=== PATIENT | female | born 1930 | race Caucasian/White ===

== ENCOUNTER → 2018-12-11 | Outpatient (CLI) | payer OTHER ==
[~2018-12-11] MED LIST: AMLO5 PO; ASPI81CH PO; ASPI81EC PO; BLOOD PRESSURE PILL; CEFA250 PO; CEFU500 PO; CHOL10002; CHOL10002 PO; CITA20 PO; CRANBERRY500 M1 PO; CYAN500 PO; DOCU100 PO; DOXY100 PO; ESTMED PO; GLIM4 PO; GLYB5 PO; GLYMET5 PO; Garlic Oil1000 MG PO; HYDACE5 PO; INSDET100 SC; LISI10 PO; LISI5 PO; MELO7.5 PO; METF500 PO; METO25; METO25ER PO; MULVITMINF PO; NITR100CA PO; NORT25 PO; Nortriptyline H10 MG PO; Novolog Fl100 UNIT/1 SC; ONDA4ODT MM; PRAV10 PO; PRAV20 PO; PRAV40 PO; PRAVASTATIN SOD10 MG PO; RXONDA4ODT MM; SULTRIDS PO; THIO PO; [UNRECOGNIZED DRUG - CODE]; [UNRECOGNIZED DRUG - CODE] PO; [UNRECOGNIZED DRUG - REMARK]
[2018-12-11 11:55] LABS: Source, Urine Voided
[2018-12-11 16:38] LABS: Appearance, Urine Cloudy (Clear); Bilirubin, Urine Neg (Neg); Blood, Urine 5+ (Neg); Color, Urine Yellow (P-Yellow); Glucose Qualitative, Urine Neg (Neg); Ketones, Urine Neg (Neg); Leukocyte Esterase, Urine 3+ (Neg); Nitrite, Urine Pos (Neg); Protein, Urine 2+ (Neg); Urobilinogen, Urine NORM (Normal)
[2018-12-11 17:47] LABS: White Blood Cells, Urine TNTC /hpf (0-5)
[2018-12-11 17:48] LABS: Bacteria Many /hpf; Red Blood Cells, Urine 25-50 /hpf (0-2); Squamous Epithelial Cells Many /hpf (Few)
== END | disposition home or self-care (01) ==
LOC: LAB SHORT 11:53 → LAB 11:53
PROVIDERS: Family Medicine
DX: R35.0 Frequency of micturition (principal)
CPT/HCPCS: 81001; 87077; 87086; 87186

== ENCOUNTER → 2019-06-20 | Outpatient (CLI) | payer OTHER | END | disposition home or self-care (01) | LOC: LAB EV 15:35 → LAB SHORT 15:35 | DX: N39.0 Urinary tract infection, site not specified (principal) | CPT/HCPCS: 87077; 87086; 87186 ==

== ENCOUNTER 2019-11-06 11:58 | Emergency (ER) | payer OTHER ==
[~2019-11-06] VITALS: Ht 162.6 cm; Wt 59.0 kg
[2019-11-06 12:33] LABS: Source, Urine Catheter
[2019-11-06 12:35] LABS: Bilirubin, Urine Neg (Neg); Blood, Urine 3+ (Neg); Glucose Qualitative, Urine 4+ (Neg); Ketones, Urine Neg (Neg); Leukocyte Esterase, Urine 3+ (Neg); Nitrite, Urine Pos (Neg); Protein, Urine 3+ (Neg); Urobilinogen, Urine NORM (Normal)
[2019-11-06 12:44] LABS: Appearance, Urine Cloudy (Clear); Color, Urine Yellow (P-Yellow); Red Blood Cells, Urine TNTC /hpf (0-2); White Blood Cells, Urine TNTC /hpf (0-5)
[2019-11-06 12:45] LABS: Bacteria Many /hpf; Squamous Epithelial Cells Not Seen /hpf (Few)
[2019-11-06 12:49] LABS: BASOPHILS ABSOLUTE AUTO 0.08 K/mm3 (0.00-0.23); BASOPHILS PERCENT AUTO 1 % (0-2); EOSINOPHILS ABSOLUTE AUTO 0.21 K/mm3 (0.00-0.68); EOSINOPHILS PERCENT AUTO 2 % (0-6); Hematocrit 37.9 % (33.0-51.0); Hemoglobin 12.8 g/dL (11.5-16.0); IMMATURE GRAN ABSOLUTE AUTO 0.05 K/mm3 (0.00-0.10); IMMATURE GRAN PERCENT AUTO 0 % (0-1); LYMPHOCYTES PERCENT AUTO 24 % (21-46); MONOCYTES ABSOLUTE AUTO 0.82 K/mm3 (0.16-1.47); MONOCYTES PERCENT AUTO 6 % (4-13); Mean Corpuscular HGB 31.3 pg (26.0-34.0); Mean Corpuscular HGB Conc 33.8 g/dL (31.5-36.5); Mean Corpuscular Volume 93 fL (80-100); Mean Platelet Volume 10.9 fL (9.1-12.4); NEUTROPHILS ABSOLUTE AUTO 8.66 K/mm3 (1.96-9.15); NEUTROPHILS PERCENT AUTO 67 % (41-73); Platelet Count 238 K/mm3 (150-400); RDW Coefficient Variation 13.2 % (11.7-14.2); RDW Standard Deviation 44.8 fL (35.1-46.3); Red Blood Cell Count 4.09 M/mm3 (3.80-5.20); White Blood Cell Count 12.92 K/mm3 (4.00-11.30)
[2019-11-06 13:08] LABS: Albumin, Blood 3.5 g/dL (3.4-5.0); Albumin/Globulin Ratio 0.7 (0.8-1.8); Bilirubin, Total 0.4 mg/dL (0.1-1.0); Calcium, Blood 9.3 mg/dL (8.5-10.1); Creatinine, Blood 1.26 mg/dL (0.40-1.00); Globulin, Blood 4.9 g/dL (2.2-4.0); Potassium, Blood 4.5 mmol/L (3.5-5.5); Total Protein, Blood 8.4 g/dL (6.4-8.2)
[2019-11-06] MEDS ORDERED: LEVOFLOXACIN750 MG PO (13:23)
[2019-11-06] MEDS ORDERED: POWDERLAX238 GM PO (13:23)
== END 2019-11-06 16:43 | disposition home or self-care (01) ==
LOC: ER 11:58
PROVIDERS: Physician Assistant
DX: N39.0 Urinary tract infection, site not specified (principal); K59.00 Constipation, unspecified; E11.9 Type 2 diabetes mellitus without complications; Z88.0 Allergy status to penicillin; Z88.5 Allergy status to narcotic agent; Z79.899 Other long term (current) drug therapy
CPT/HCPCS: 36415; 74018; 80053; 81001; 82947; 85025; 87086; 87147; 96365; 96366; 99283-25; J1815; J1956; P9612

== ENCOUNTER 2020-01-22 12:33 | Inpatient (IN) | payer OTHER ==
[~2020-01-22] VITALS: Ht 170.2 cm; Wt 55.9 kg
[~2020-01-22 12:33] MED LIST changes: -ASPI81CH PO; +Aspirin EC81 MG PO; -CHOL10002; +HYDR10 PO; +LEVOFLOXACIN250 MG PO; +LEVOFLOXACIN750 MG PO; +MEMA5TAB PO; -METO25; +METO25 PO; +NOVOLOG FL100 UNIT/1 SC; -Novolog Fl100 UNIT/1 SC; +POWDERLAX238 GM PO; +SENN187 PO; +VISBIOME 112.51 EACH PO; +VITAMIN D31000 UNI1 PO
[2020-01-22] MEDS ORDERED: NOVOLOG100 UNIT/2 SC (12:44)
[2020-01-22] MEDS ORDERED: BASAGLAR K100 UNIT/1 SC (12:44)
[2020-01-22] MEDS ORDERED: LEVFLO500 PO (12:45)
[2020-01-22] MEDS ORDERED: ACIDOPHILUS1 EAC3 (12:45)
[2020-01-22] MEDS ORDERED: Prinivil10 MG PO (12:45)
[2020-01-22] MEDS ORDERED: METO25ER PO (12:46)
[2020-01-22] MEDS ORDERED: AMLO5 PO (12:46)
[2020-01-22] MEDS ORDERED: Metformin HCl750 MG PO (12:46)
[2020-01-22] MEDS ORDERED: NORTRIPTYLINE H10 MG PO (12:46)
[2020-01-22] MEDS ORDERED: MEMA5TAB PO (12:46)
[2020-01-22] MEDS ORDERED: Vitamin B-121000 MCG PO (12:47)
[2020-01-22] MEDS ORDERED: Aspir 8181 MG PO (12:47)
[2020-01-22] MEDS ORDERED: GARLIC OIL1000 MG PO (12:47)
[2020-01-22] MEDS ORDERED: VITAMIN D31000 UNI1 PO (12:47)
[2020-01-22] MEDS ORDERED: Colace100 MG PO (12:47)
[2020-01-22] MEDS ORDERED: MIRALAX17 GM PO (12:47)
[2020-01-22] MEDS ORDERED: HYDR10 PO (12:47)
[2020-01-22] MEDS ORDERED: CITA20 PO (12:47)
[2020-01-22] MEDS ORDERED: SENN187 PO (12:48)
[2020-01-22] MEDS ORDERED: PRAV20 PO (12:48)
[2020-01-22 14:24] LABS: BASOPHILS ABSOLUTE AUTO 0.05 K/mm3 (0.00-0.23); BASOPHILS PERCENT AUTO 0 % (0-2); EOSINOPHILS ABSOLUTE AUTO 0.24 K/mm3 (0.00-0.68); EOSINOPHILS PERCENT AUTO 2 % (0-6); Hematocrit 38.4 % (33.0-51.0); Hemoglobin 12.9 g/dL (11.5-16.0); IMMATURE GRAN ABSOLUTE AUTO 0.07 K/mm3 (0.00-0.10); IMMATURE GRAN PERCENT AUTO 0 % (0-1); LYMPHOCYTES ABSOLUTE AUTO 2.98 K/mm3 (0.84-5.20); LYMPHOCYTES PERCENT AUTO 19 % (21-46); MONOCYTES ABSOLUTE AUTO 1.03 K/mm3 (0.16-1.47); MONOCYTES PERCENT AUTO 7 % (4-13); Mean Corpuscular HGB 31.7 pg (26.0-34.0); Mean Corpuscular HGB Conc 33.6 g/dL (31.5-36.5); Mean Corpuscular Volume 94 fL (80-100); Mean Platelet Volume 11.1 fL (9.1-12.4); NEUTROPHILS ABSOLUTE AUTO 11.34 K/mm3 (1.96-9.15); NEUTROPHILS PERCENT AUTO 72 % (41-73); Platelet Count 263 K/mm3 (150-400); RDW Coefficient Variation 12.2 % (11.7-14.2); RDW Standard Deviation 42.3 fL (35.1-46.3); Red Blood Cell Count 4.07 M/mm3 (3.80-5.20); White Blood Cell Count 15.71 K/mm3 (4.00-11.30)
[2020-01-22 14:40] LABS: Albumin, Blood 2.8 g/dL (3.4-5.0); Albumin/Globulin Ratio 0.6 (0.8-1.8); Bilirubin, Total 0.4 mg/dL (0.1-1.0); Bun/Creatinine Ratio 26.6 (12.0-20.0); Calcium, Blood 8.8 mg/dL (8.5-10.1); Creatinine, Blood 1.28 mg/dL (0.40-1.00); Globulin, Blood 4.6 g/dL (2.2-4.0); Potassium, Blood 4.6 mmol/L (3.5-5.5); Total Protein, Blood 7.4 g/dL (6.4-8.2)
--- NOTE | 2020-01-22 17:15 | NUR ---
PT ABLE TO ANSWER YES/NO QUESTIONS. PT HAVING PAIN, REQ TO HAVE PAIN MEDICATION. PT MED PRN FOR PAIN. PT ALERT, OPENS EYES WHEN TALKED TO. PT SHAKES HEAD YES/NO. PUPILS REACTIVE AND EQUAL. PT HAS BED ALARM IN PLACE.
--- NOTE | 2020-01-22 18:20 | NUR ---
DNR ORDER VERIFIED WITH OTHER RN C.H. AND PURPLE BAND PLACED ON PT.
[2020-01-22 18:46] LABS: Source, Urine Catheter
[2020-01-22 19:08] LABS: Bilirubin, Urine Neg (Neg); Blood, Urine 2+ (Neg); Glucose Qualitative, Urine 1+ (Neg); Ketones, Urine Neg (Neg); Leukocyte Esterase, Urine 2+ (Neg); Nitrite, Urine Neg (Neg); Protein, Urine 2+ (Neg); Urobilinogen, Urine NORM (Normal)
--- NOTE | 2020-01-22 19:20 | NUR ---
DR CAM WAS NOTIFIED AFTER PT ARRIVED TO FLOOR OF PT BEING IN ROOM 219 PER ORDER, SEE ORDERS.
[2020-01-22 19:27] LABS: Appearance, Urine Hazy (Clear); Color, Urine Yellow (P-Yellow)
--- NOTE | 2020-01-22 19:27 | NUR ---
RECNENTLY GAVE REPORT TO HS RN. PAS PLACED. PT WITH BED ALARM IN PLACE, PT RESTING QUIETLY.
[2020-01-22 19:29] LABS: Bacteria Mod /hpf; Red Blood Cells, Urine 0-2 /hpf (0-2); Squamous Epithelial Cells Not Seen /hpf (Few); White Blood Cells, Urine 50-100 /hpf (0-5)
--- NOTE | 2020-01-22 19:45 | NUR ---
PATIENT IS WAKEFUL WITH VERBAL STIM. SHE IS ABLE TO RECOGNIZE THAT FAMILY HAVE DELIVERED HER FAVORITE BIRCH AND BALOONS. SHE STATES THAT SHE IS HAVING PAIN IN HER RT LEG, BUT DOESNT WANT ANY PAIN MEDICATION. PATIENT IS SCHEDULED TO SEE DR CAM IN THE MORNING AND WILL LIKELY GO TO SURGERY TO REPAIR HER LT FEMUR FX. HER LUNGS ARE CLEAR NO NAUSEA/ VOMITING.
--- NOTE | 2020-01-23 03:58 | NUR ---
RN NOTIFIED OF AMOUNT OF URINE OUTPUT AND COLOR.
[2020-01-23 04:28] LABS: BASOPHILS ABSOLUTE AUTO 0.06 K/mm3 (0.00-0.23); BASOPHILS PERCENT AUTO 1 % (0-2); EOSINOPHILS PERCENT AUTO 4 % (0-6); Hematocrit 36.2 % (33.0-51.0); Hemoglobin 11.8 g/dL (11.5-16.0); IMMATURE GRAN ABSOLUTE AUTO 0.04 K/mm3 (0.00-0.10); IMMATURE GRAN PERCENT AUTO 0 % (0-1); LYMPHOCYTES ABSOLUTE AUTO 3.45 K/mm3 (0.84-5.20); LYMPHOCYTES PERCENT AUTO 29 % (21-46); MONOCYTES ABSOLUTE AUTO 0.71 K/mm3 (0.16-1.47); MONOCYTES PERCENT AUTO 6 % (4-13); Mean Corpuscular HGB 30.3 pg (26.0-34.0); Mean Corpuscular HGB Conc 32.6 g/dL (31.5-36.5); Mean Corpuscular Volume 93 fL (80-100); Mean Platelet Volume 11.5 fL (9.1-12.4); NEUTROPHILS ABSOLUTE AUTO 7.27 K/mm3 (1.96-9.15); NEUTROPHILS PERCENT AUTO 60 % (41-73); Platelet Count 245 K/mm3 (150-400); RDW Coefficient Variation 12.4 % (11.7-14.2); RDW Standard Deviation 42.7 fL (35.1-46.3); Red Blood Cell Count 3.89 M/mm3 (3.80-5.20); White Blood Cell Count 12.03 K/mm3 (4.00-11.30)
[2020-01-23 04:43] LABS: Bun/Creatinine Ratio 29.7 (12.0-20.0); Calcium, Blood 8.4 mg/dL (8.5-10.1); Creatinine, Blood 1.01 mg/dL (0.40-1.00); Potassium, Blood 4.4 mmol/L (3.5-5.5)
[2020-01-23 04:46] LABS: International Normalized Ratio 1.01; Prothrombin Time Results 10.8 Sec (9.7-11.5)
--- NOTE | 2020-01-23 17:56 | NUR ---
SUMMARY PT CALM AND COOPERATIVE, HAS MADE NO ATTEMPTS TO GET OOB. FACIAL SCALE 4 AT TIMES AND DECREASES TO 2 AFTER MEDICATED. PHONE CALLS ATTEMPTED X3 TO PATIENTS SON, JAMEY, AND CAREGIVER, SYLVAIN AND NO ANSWER. BLE WARM AND PINK. PT VONNIE PO FOOD AND FLUIDS
[2020-01-24 04:42] LABS: Hematocrit 36.6 % (33.0-51.0); Hemoglobin 12.1 g/dL (11.5-16.0); Mean Corpuscular HGB 30.9 pg (26.0-34.0); Mean Corpuscular HGB Conc 33.1 g/dL (31.5-36.5); Mean Corpuscular Volume 93 fL (80-100); Mean Platelet Volume 11.1 fL (9.1-12.4); Platelet Count 248 K/mm3 (150-400); RDW Coefficient Variation 12.3 % (11.7-14.2); RDW Standard Deviation 42.2 fL (35.1-46.3); Red Blood Cell Count 3.92 M/mm3 (3.80-5.20); White Blood Cell Count 11.08 K/mm3 (4.00-11.30)
[2020-01-24 05:05] LABS: Anion Gap 4 mmol/L (6-16); Blood Urea Nitrogen 21 mg/dL (8-24); Bun/Creatinine Ratio 23.7 (12.0-20.0); CO2, Blood 27 mmol/L (21-32); Chloride, Blood 106 mmol/L (98-108); Creatinine, Blood 0.89 mg/dL (0.40-1.00); Glomerular Filtration Rate >60 (60-); Glucose, Blood 131 mg/dL (70-99); Potassium, Blood 4.5 mmol/L (3.5-5.5); Sodium, Blood 137 mmol/L (136-145)
--- NOTE | 2020-01-24 05:51 | NUR ---
SHIFT SUMMARY AA0X2 PT COOPERATIVE WITH CARE. ABLE TO REPOSITION, SLIGHT GRIMACE WITH REPOSITION, DENIED PAIN ONCE REPOSITION DONE. NPO SINCE MIDNIGHT PER ORDERS. ORTEGA PATENT AND DRAINING. BED ALARM ON AND CALL LIGHT IN REACH T/O THE NIGHT. PLAN FOR POSSIBLE SURGERY TODAY.
--- NOTE | 2020-01-24 08:49 | NUR ---
ATTEMPTED TO CALL PT'S SON JAMEY AND BOYFRIEND. HOME PHONE NUMBER IS DISCONNECTED WHEN CALL IS PLACED. JAMEY'S PHONE NUMBER GOES DIRECTLY TO VOICEMAIL WHICH IS FULL.
--- NOTE | 2020-01-24 11:17 | NUR ---
WITNESS CONSENT DR. CHEUNG CAME TO THE ROOM TO HAVE PT SIGN CONSENT FOR SURGERY. SHE WAS ABLE TO VERBALIZE THAT SHE WAS IN THE HOSPITAL AND THAT SHE WAS GOING TO HAVE SURGERY ON HER HIP. PT ALSO SIGNED CONSENT FOR BLOOD AT THAT TIME. SHE VERBLIZED THAT SHE WAS OK WITH RECIEVING ANOTHER PERSON'S BLOOD IF NEEDED DURING SURGERY.
--- NOTE | 2020-01-24 11:58 | NUR ---
"DAY SURGERY RN | TO OR PATIENT INTO PACU FOR PRE-OP. BOTH DOCTORS HAVE SEEN PATIENT. BLACKJACK PIT BOSS RN HAS SEEN PATIENT. REPORT TO SHELIA GREENE. TO OR."
--- NOTE | 2020-01-24 12:55 | NUR ---
01/24/20 Ariela Lange PT ENTERED OR WITH ORTEGA CATHETER
--- NOTE | 2020-01-24 15:15 | NUR ---
PT ARRIVED BACK TO HER ROOM AT [facility] 1505. PT IS DROWSY BUT AWAKENS AND ANSWERS QUESTIONS APPROPRIATELY. PT'S SON JAMEY CALLED AND HE WAS UPDATED ABOUT PT. HIS WORK PHONE NUMBER WAS OBTAINED SO HE COULD BE REACHED IF NEEDED.
--- NOTE | 2020-01-24 19:25 | NUR ---
SHIFT SUMMARY PT HAD A L KRISTINA HIP WITH DR. CHEUNG TODAY. HER PAIN HAS BEEN MANAGED WITH IV PAIN MEDICATION AND COOL APPLICATION POST-OP. PT REMAINS CONFUSED AND BED ALARM IN IN PLACE. PT'S SON CALLED AND WAS ABLE TO ANSWER ADMIT QUESTIONS AND LEAVE A WORK NUMBER THAT HE COULD BE CONTACTED AT. VSS. REPORT GIVEN TO ERICKA GREENE.
[2020-01-25 04:17] LABS: BASOPHILS ABSOLUTE AUTO 0.05 K/mm3 (0.00-0.23); BASOPHILS PERCENT AUTO 0 % (0-2); EOSINOPHILS ABSOLUTE AUTO 0.14 K/mm3 (0.00-0.68); EOSINOPHILS PERCENT AUTO 1 % (0-6); Hematocrit 38.8 % (33.0-51.0); Hemoglobin 12.8 g/dL (11.5-16.0); IMMATURE GRAN ABSOLUTE AUTO 0.07 K/mm3 (0.00-0.10); IMMATURE GRAN PERCENT AUTO 1 % (0-1); LYMPHOCYTES ABSOLUTE AUTO 2.88 K/mm3 (0.84-5.20); LYMPHOCYTES PERCENT AUTO 20 % (21-46); MONOCYTES PERCENT AUTO 7 % (4-13); Mean Corpuscular HGB 30.7 pg (26.0-34.0); Mean Corpuscular Volume 93 fL (80-100); Mean Platelet Volume 10.9 fL (9.1-12.4); NEUTROPHILS ABSOLUTE AUTO 10.19 K/mm3 (1.96-9.15); NEUTROPHILS PERCENT AUTO 71 % (41-73); Platelet Count 230 K/mm3 (150-400); RDW Standard Deviation 41.6 fL (35.1-46.3); Red Blood Cell Count 4.17 M/mm3 (3.80-5.20); White Blood Cell Count 14.33 K/mm3 (4.00-11.30)
--- NOTE | 2020-01-25 04:49 | NUR ---
SHIFT SUMMARY HAS RESTED WELL THIS SHIFT, WITH NO ACCUTE CHANGES NOTED. HAS BEEN PLEASANAT AND COOPERATIVE SINCE ASSUMPTION OF CARE AT 2300HRS. DENIES FURTHER NEEDS OR WANTS AT THIS TIME. SAFETY MEASURES IN PLACE. WILL GIVE HAND OFF TO ONCOMING SHIFT USING SBAR DURING BEDSIDE REPORT.
[2020-01-25 05:44] LABS: Anion Gap 7 mmol/L (6-16); Blood Urea Nitrogen 14 mg/dL (8-24); Bun/Creatinine Ratio 17.8 (12.0-20.0); CO2, Blood 23 mmol/L (21-32); Calcium, Blood 8.4 mg/dL (8.5-10.1); Chloride, Blood 105 mmol/L (98-108); Creatinine, Blood 0.79 mg/dL (0.40-1.00); Glomerular Filtration Rate >60 (60-); Glucose, Blood 177 mg/dL (70-99); Potassium, Blood 4.8 mmol/L (3.5-5.5); Sodium, Blood 135 mmol/L (136-145)
--- NOTE | 2020-01-25 19:49 | NUR ---
SHIFT SUMMARY PT IS POD#1 FROM A LEFT KRISTINA HIP WITH DR. CHEUNG. PAIN IS MANAGED WITH ULTRAM. SHE ATTEMPTED TO WORK WITH THERAPY THIS SHIFT, SHE WAS ABLE TO STAND AT THE EDGE OF THE BED BUT UNABLE TO TRANSFER. ENCOURAGING PO INTAKE. ORTEGA CATHETER OUT TODAY; AWAITING VOID, BLADDER SCAN SHOWED 124ML IN HER BLADDER. VSS. REPORT GIVEN TO ERICKA GREENE.
[2020-01-26 04:15] LABS: BASOPHILS ABSOLUTE AUTO 0.03 K/mm3 (0.00-0.23); BASOPHILS PERCENT AUTO 0 % (0-2); EOSINOPHILS ABSOLUTE AUTO 0.22 K/mm3 (0.00-0.68); EOSINOPHILS PERCENT AUTO 2 % (0-6); Hematocrit 34.7 % (33.0-51.0); Hemoglobin 11.1 g/dL (11.5-16.0); IMMATURE GRAN ABSOLUTE AUTO 0.06 K/mm3 (0.00-0.10); IMMATURE GRAN PERCENT AUTO 1 % (0-1); LYMPHOCYTES ABSOLUTE AUTO 2.46 K/mm3 (0.84-5.20); LYMPHOCYTES PERCENT AUTO 20 % (21-46); MONOCYTES ABSOLUTE AUTO 1.01 K/mm3 (0.16-1.47); MONOCYTES PERCENT AUTO 8 % (4-13); Mean Corpuscular HGB 29.9 pg (26.0-34.0); Mean Corpuscular Volume 94 fL (80-100); Mean Platelet Volume 11.2 fL (9.1-12.4); NEUTROPHILS PERCENT AUTO 70 % (41-73); Platelet Count 246 K/mm3 (150-400); RDW Coefficient Variation 12.1 % (11.7-14.2); Red Blood Cell Count 3.71 M/mm3 (3.80-5.20); White Blood Cell Count 12.58 K/mm3 (4.00-11.30)
[2020-01-26 04:31] LABS: Albumin, Blood 2.3 g/dL (3.4-5.0); Anion Gap 3 mmol/L (6-16); Blood Urea Nitrogen 12 mg/dL (8-24); Bun/Creatinine Ratio 14.5 (12.0-20.0); CO2, Blood 30 mmol/L (21-32); Calcium, Blood 8.9 mg/dL (8.5-10.1); Chloride, Blood 104 mmol/L (98-108); Creatinine, Blood 0.83 mg/dL (0.40-1.00); Glomerular Filtration Rate >60 (60-); Glucose, Blood 127 mg/dL (70-99); Phosphorus, Blood 1.8 mg/dL (2.5-4.9); Potassium, Blood 3.9 mmol/L (3.5-5.5); Sodium, Blood 137 mmol/L (136-145)
--- NOTE | 2020-01-26 05:00 | NUR ---
SHIFT SUMMARY POD 2 L KRISTINA HIP PT [id number]. PLEASANT AND COOPERATIVE. WOULD OCCASIONALLY ASK NON SENSICAL QUESTIONS AND WAS UNSURE WHERE SHE WAS AT. NEEDED STRAIGHT CATH TO VOID. DENIES PAIN DURING SHIFT EVEN WITH MOVEMENT. REPOSITIONING SELF FREQUENTLY IN BED. PLAN IS FOR PT TO GO TO SNF AT SOME POINT.
--- NOTE | 2020-01-26 09:00 | NUR ---
DR TOM RECENTLY HERE TO SEE PT. DISCUSSED PT'S HR AND THAT PT WAS S/C DURING HS AND THAT SHE HAS NOT BEEN ABLE TO VOID YET. DR REPORTS TO COMPLETE S/C IF NEEDED, TO NOT PLACE ORTEGA TO GRAVITY.
--- NOTE | 2020-01-26 09:18 | NUR ---
TELE PLACED, WITH OTHER FEMALE RN. BOX VERIFIED.
--- NOTE | 2020-01-26 10:02 | NUR ---
DISCUSSED TELE REPORTING PT BOUNCING BETWEEN AFLUTTER W/BBB IN 120'S TO PACED IN 80'S WITH DR TOM. SEE STRIP.
--- NOTE | 2020-01-26 13:40 | NUR ---
PT TO IMAGING, WAS MOVED TO [facility] WITH MULT ASSIST.
--- NOTE | 2020-01-26 19:24 | NUR ---
SHIFT SUMMARY PT CONT TO BE CONFUSED BUT PLEASANT. PT HR INCREASED THIS AM AND PT WAS PLACED ON TELE. PT HR IN 80'S MOST OF SHIFT. PT BEEN ASSISTED WITH ADL'S PRN. PT BEEN REPOSITIONED MULT TIMES WITH ASSIST FROM PIVOT END POLISHER WELL OTHER NURSES. PT WAS S/C THIS AFTERNOON BY DYE BECK REEL OPERATOR DR TOM REPORTED TO HAVE I/O PERFORMED IF PT WAS UNABLE TO VOID. PT WORKED WITH THERAPY TODAY. PT BEEN EATING AND DRINKING. BED ALARM AND PAS BEEN IN PLACE. PT CONT TO HAVE MEPILEX IN PLACE TO BOTTOM.
--- NOTE | 2020-01-26 22:37 | NUR ---
NOTIFIED VY STEVE OF PT NOT VOIDING TODAY OTHER THAN STRAIGHT CATH AT 1300. ALSO NOTIFIED PROVIDER OF BLADDER SCAN AT 115 AND POOR PO INTAKE. NO NEW ORDERS AT THIS TIME. WILL CONT TO MONITOR.
[2020-01-27 04:28] LABS: BASOPHILS ABSOLUTE AUTO 0.06 K/mm3 (0.00-0.23); BASOPHILS PERCENT AUTO 1 % (0-2); EOSINOPHILS ABSOLUTE AUTO 0.42 K/mm3 (0.00-0.68); EOSINOPHILS PERCENT AUTO 3 % (0-6); Hematocrit 34.5 % (33.0-51.0); Hemoglobin 11.3 g/dL (11.5-16.0); IMMATURE GRAN ABSOLUTE AUTO 0.05 K/mm3 (0.00-0.10); IMMATURE GRAN PERCENT AUTO 0 % (0-1); LYMPHOCYTES ABSOLUTE AUTO 3.58 K/mm3 (0.84-5.20); LYMPHOCYTES PERCENT AUTO 27 % (21-46); MONOCYTES ABSOLUTE AUTO 1.01 K/mm3 (0.16-1.47); MONOCYTES PERCENT AUTO 8 % (4-13); Mean Corpuscular HGB 30.4 pg (26.0-34.0); Mean Corpuscular HGB Conc 32.8 g/dL (31.5-36.5); Mean Corpuscular Volume 93 fL (80-100); Mean Platelet Volume 11.6 fL (9.1-12.4); NEUTROPHILS ABSOLUTE AUTO 7.96 K/mm3 (1.96-9.15); NEUTROPHILS PERCENT AUTO 61 % (41-73); Platelet Count 230 K/mm3 (150-400); RDW Coefficient Variation 12.4 % (11.7-14.2); RDW Standard Deviation 42.5 fL (35.1-46.3); Red Blood Cell Count 3.72 M/mm3 (3.80-5.20); White Blood Cell Count 13.08 K/mm3 (4.00-11.30)
--- NOTE | 2020-01-27 06:01 | NUR ---
SHIFT SUMMARY POD 3 S/P LEFT HIP SURGERY. PT A/OX3 WITH VSS. TELE IN PLACE; HR IN 60'S WITH 1ST DEGREE AND BBB. SPO2 ABOVE 93% ON RA. AQUACEL TO LEFT HIP CDI. POLAR PACK AND SCD IN PLACE. NO VOID; STRAIGHT CATH PRODUCED 450ML. PT REPOSITIONED FREQUENTLY T/O NIGHT. PAIN MANAGED WITH PO MEDICATION. OFTEN DENIED PAIN OR NEED FOR PAIN MEDICATION. PT APPEARS TO HAVE SLEPT WELL. WILL DISCUSS VOIDING WITH DAY SHIFT RN. PLAN FOR PT TO WORK WITH PT/OT. PT CURRENTLY RESTING IN BED WITH CALL LIGHT IN REACH. WILL CONT TO MONITOR AND GIVE REPORT TO COMING RN.
--- NOTE | 2020-01-27 09:01 | NUR ---
DR TOM HERE TO SEE PT. DR TOM DISCUSSED PT GOING TO REHAB, PT AGREED TO GO TO REHAB, WILL DISCUSS WITH PRODUCT DEVELOPMENT CONSULTANT.
--- NOTE | 2020-01-27 10:22 | NUR ---
DR CHEUNG REPORTED PT IS CLEARED TO GO TO REHAB TODAY.
--- NOTE | 2020-01-27 16:00 | NUR ---
PT BEEN UP TO CHAIR MOST OF DAY, ASSISTED BACK TO BED WITH MULT ASSIST.
--- NOTE | 2020-01-27 17:42 | NUR ---
PT WAS DC'D TO [facility] BY TRANSPORT. PT WAS SENT WITH BELONGINGS, PAPERWORK INCLUDING SCRIPT. OPTO MECHANICAL TECHNICIAN ASSISTED WITH DISCHARGE, REPORTS TALKING WITH FAMILY. REPORT BEEN GIVEN INCLUDING PT RECENTLY MEDICATED FOR PAIN AND S/C BY FEMALE CLIENT RELATION SPECIALIST. IV OUT WNL. REPORT WAS GIVEN TO HAKAN.
== END 2020-01-27 17:30 | DRG 470 ==
LOC: ER 12:33 → SURS 15:46
PROVIDERS: Emergency Medicine; Family Medicine; Internal Medicine; Nurse Practitioner Acute Care; Orthopaedic Surgery; ADMIT Internal Medicine
PROC: 0SRS0J9 Replacement of Left Hip Joint, Femoral Surface with Synthetic Substitute, Cemented, Open Approach (ICD-10-PCS; principal; 2020-01-24 14:30)
DX: S72.002A Fracture of unspecified part of neck of left femur, initial encounter for closed fracture (principal); I48.92 Unspecified atrial flutter; W19.XXXA Unspecified fall, initial encounter; F03.90 Unspecified dementia, unspecified severity, without behavioral disturbance, psychotic disturbance, mood disturbance, and anxiety; N18.3 Chronic kidney disease, stage 3 (moderate); I12.9 Hypertensive chronic kidney disease with stage 1 through stage 4 chronic kidney disease, or unspecified chronic kidney disease; E11.22 Type 2 diabetes mellitus with diabetic chronic kidney disease; B96.89 Other specified bacterial agents as the cause of diseases classified elsewhere; R33.9 Retention of urine, unspecified; E83.39 Other disorders of phosphorus metabolism; Z66 Do not resuscitate; Z88.5 Allergy status to narcotic agent; Z88.0 Allergy status to penicillin; Z79.82 Long term (current) use of aspirin; Z79.4 Long term (current) use of insulin; Z79.899 Other long term (current) drug therapy
CPT/HCPCS: 36415; 71045; 71046; 72170; 73502; 73552; 80048; 80053; 80069; 81001; 82947; 83735; 85025; 85027; 85610; 85730; 87086; 93005; 93010; 94762; 97110; 97162; 99285-25; A9270-GY; C1713; C1776; J0360; J0690; J1170; J1650; J2250; J2405; J2704; J3010; J7030; J7120; U0002

== ENCOUNTER → 2020-04-02 | Outpatient (CLI) | payer OTHER ==
[~2020-04-02] MED LIST changes: +ACET500 PO; +ACIDOPHILUS1 EAC3; +Aspir 8181 MG PO; +BASAGLAR K100 UNIT/1 SC; +CIPR500 PO; +Cleocin HCl150 MG PO; +Colace100 MG PO; +Garlic500 MG PO; +LACTOBACILLUS1 EAC4 PO; +LEVFLO500 PO; +MIRALAX17 GM PO; +Metformin HCl750 MG PO; +NORTRIPTYLINE H10 MG PO; +NOVOLOG100 UNIT/2 SC; +PHOS-NaK PO; +Prinivil10 MG PO; +Silvadene20 GM TOP; +TAMS.4ER PO; +TRAM50 PO; +Vitamin B-121000 MCG PO
== END | disposition home or self-care (01) ==
LOC: LAB SHORT 19:30 → LAB 19:30
DX: N39.0 Urinary tract infection, site not specified (principal)
CPT/HCPCS: 87077; 87086; 87147; 87186

== ENCOUNTER 2020-04-07 10:00 | Inpatient (IN) | payer OTHER ==
[~2020-04-07] VITALS: Ht 165.1 cm; Wt 56.7 kg
[~2020-04-07 10:00] MED LIST changes: -ACET500 PO; -Aspir 8181 MG PO; -BASAGLAR K100 UNIT/1 SC; -CIPR500 PO; -Cleocin HCl150 MG PO; -Colace100 MG PO; -Garlic500 MG PO; -LACTOBACILLUS1 EAC4 PO; -Metformin HCl750 MG PO; -NOVOLOG100 UNIT/2 SC; -PHOS-NaK PO; -Prinivil10 MG PO; -Silvadene20 GM TOP; -TAMS.4ER PO; -TRAM50 PO
[2020-04-07 10:29] LABS: BASOPHILS ABSOLUTE AUTO 0.04 K/mm3 (0.00-0.23); BASOPHILS PERCENT AUTO 0 % (0-2); EOSINOPHILS ABSOLUTE AUTO 0.03 K/mm3 (0.00-0.68); EOSINOPHILS PERCENT AUTO 0 % (0-6); Hemoglobin 9.5 g/dL (11.5-16.0); IMMATURE GRAN ABSOLUTE AUTO 0.13 K/mm3 (0.00-0.10); IMMATURE GRAN PERCENT AUTO 1 % (0-1); LYMPHOCYTES ABSOLUTE AUTO 4.32 K/mm3 (0.84-5.20); LYMPHOCYTES PERCENT AUTO 19 % (21-46); MONOCYTES ABSOLUTE AUTO 1.11 K/mm3 (0.16-1.47); MONOCYTES PERCENT AUTO 5 % (4-13); Mean Corpuscular HGB 30.4 pg (26.0-34.0); Mean Corpuscular HGB Conc 32.8 g/dL (31.5-36.5); Mean Corpuscular Volume 93 fL (80-100); Mean Platelet Volume 10.8 fL (9.1-12.4); NEUTROPHILS ABSOLUTE AUTO 17.61 K/mm3 (1.96-9.15); NEUTROPHILS PERCENT AUTO 76 % (41-73); Platelet Count 396 K/mm3 (150-400); RDW Coefficient Variation 15.6 % (11.7-14.2); RDW Standard Deviation 53.4 fL (35.1-46.3); Red Blood Cell Count 3.12 M/mm3 (3.80-5.20); White Blood Cell Count 23.24 K/mm3 (4.00-11.30)
[2020-04-07 10:39] LABS: Albumin, Blood 2.3 g/dL (3.4-5.0); Albumin/Globulin Ratio 0.5 (0.8-1.8); Bilirubin, Total 0.6 mg/dL (0.1-1.0); Bun/Creatinine Ratio 28.5 (12.0-20.0); Calcium, Blood 8.7 mg/dL (8.5-10.1); Creatinine, Blood 1.3 mg/dL (0.40-1.00); Globulin, Blood 4.9 g/dL (2.2-4.0); Potassium, Blood 4.1 mmol/L (3.5-5.5); Total Protein, Blood 7.2 g/dL (6.4-8.2)
[2020-04-07] MEDS ORDERED: BASAGLAR K100 UNIT/1 SC (14:14)
[2020-04-07] MEDS ORDERED: Prinivil10 MG PO (14:15)
[2020-04-07] MEDS ORDERED: NOVOLOG100 UNIT/2 SC (14:15)
[2020-04-07] MEDS ORDERED: Aspir 8181 MG PO (14:18)
[2020-04-07] MEDS ORDERED: CITA20 PO (14:19)
[2020-04-07] MEDS ORDERED: Colace100 MG PO (14:23)
[2020-04-07] MEDS ORDERED: Garlic500 MG PO (14:24)
[2020-04-07] MEDS ORDERED: Metformin HCl750 MG PO (14:29)
[2020-04-07] MEDS ORDERED: MEMA5TAB PO (14:31)
[2020-04-07] MEDS ORDERED: METO25ER PO (14:31)
[2020-04-07] MEDS ORDERED: AMLO5 PO (14:31)
[2020-04-07] MEDS ORDERED: TAMS.4ER PO (14:32)
[2020-04-07] MEDS ORDERED: TRAM50 PO (14:33)
[2020-04-07] MEDS ORDERED: VITAMIN D31000 UNI1 PO (14:34)
[2020-04-07] MEDS ORDERED: ACET500 PO (14:34)
[2020-04-07] MEDS ORDERED: CIPR500 PO (14:36)
[2020-04-07 14:48] LABS: Base Excess Venous -6.9 mmol/L; Bicarbonate Venous 19.1 mmol/L (24.0-30.0); PCO2 Venous 35.7 mmHg (38-42); PO2 Venous 54.7 mmHg (38-42); pH Blood Venous 7.33 (7.34-7.37)
[2020-04-07 15:11] LABS: Creatine Kinase MB 2.1 ng/mL (0.0-3.6); Creatine Kinase MB Index 0.8 (0.0-4.0)
[2020-04-07 15:19] LABS: Source, Urine Clean Catch
[2020-04-07 15:29] LABS: Appearance, Urine Clear (Clear); Blood, Urine 1+ (Neg); Color, Urine Yellow (P-Yellow); Glucose Qualitative, Urine Neg (Neg); Ketones, Urine 2+ (Neg); Leukocyte Esterase, Urine 2+ (Neg); Nitrite, Urine Neg (Neg); Protein, Urine 1+ (Neg); Specific Gravity, Urine 1.015 (1.003-1.022); Urobilinogen, Urine 1+ (Normal)
[2020-04-07 15:58] LABS: Bilirubin, Urine 1+ (Neg)
[2020-04-07 15:59] LABS: Red Blood Cells, Urine 0-2 /hpf (0-2); Squamous Epithelial Cells Few /hpf (Few)
[2020-04-07 16:00] LABS: Amorphous Light (0-Heavy); Bacteria Mod /hpf
[2020-04-07 17:40] LABS: Bun/Creatinine Ratio 28.9 (12.0-20.0); Calcium, Blood 8.1 mg/dL (8.5-10.1); Creatinine, Blood 1.21 mg/dL (0.40-1.00); Potassium, Blood 4.3 mmol/L (3.5-5.5)
[2020-04-08 04:11] LABS: BASOPHILS ABSOLUTE AUTO 0.04 K/mm3 (0.00-0.23); BASOPHILS PERCENT AUTO 0 % (0-2); EOSINOPHILS ABSOLUTE AUTO 0.13 K/mm3 (0.00-0.68); EOSINOPHILS PERCENT AUTO 1 % (0-6); Hematocrit 23.7 % (33.0-51.0); Hemoglobin 7.9 g/dL (11.5-16.0); IMMATURE GRAN PERCENT AUTO 1 % (0-1); LYMPHOCYTES ABSOLUTE AUTO 2.22 K/mm3 (0.84-5.20); LYMPHOCYTES PERCENT AUTO 13 % (21-46); MONOCYTES ABSOLUTE AUTO 1.01 K/mm3 (0.16-1.47); MONOCYTES PERCENT AUTO 6 % (4-13); Mean Corpuscular HGB 30.4 pg (26.0-34.0); Mean Corpuscular HGB Conc 33.3 g/dL (31.5-36.5); Mean Corpuscular Volume 91 fL (80-100); Mean Platelet Volume 10.5 fL (9.1-12.4); NEUTROPHILS ABSOLUTE AUTO 13.95 K/mm3 (1.96-9.15); NEUTROPHILS PERCENT AUTO 80 % (41-73); Platelet Count 346 K/mm3 (150-400); RDW Coefficient Variation 15.6 % (11.7-14.2); RDW Standard Deviation 52.1 fL (35.1-46.3); White Blood Cell Count 17.45 K/mm3 (4.00-11.30)
[2020-04-08 04:25] LABS: International Normalized Ratio 1.12; Prothrombin Time Results 11.9 Sec (9.7-11.5)
[2020-04-08 04:31] LABS: Albumin, Blood 1.9 g/dL (3.4-5.0); Albumin/Globulin Ratio 0.5 (0.8-1.8); Bilirubin, Total 0.3 mg/dL (0.1-1.0); Bun/Creatinine Ratio 30.4 (12.0-20.0); Calcium, Blood 8.1 mg/dL (8.5-10.1); Creatinine, Blood 1.12 mg/dL (0.40-1.00); Globulin, Blood 3.9 g/dL (2.2-4.0); Potassium, Blood 4.3 mmol/L (3.5-5.5); Total Protein, Blood 5.8 g/dL (6.4-8.2)
[2020-04-08 13:19] LABS: Hematocrit 23.4 % (33.0-51.0); Hemoglobin 7.6 g/dL (11.5-16.0)
[2020-04-08 14:56] LABS: Vancomycin, Random 8.4 ug/mL
[2020-04-09 04:51] LABS: BASOPHILS ABSOLUTE AUTO 0.03 K/mm3 (0.00-0.23); BASOPHILS PERCENT AUTO 0 % (0-2); EOSINOPHILS PERCENT AUTO 1 % (0-6); Hematocrit 22.7 % (33.0-51.0); Hemoglobin 7.5 g/dL (11.5-16.0); IMMATURE GRAN PERCENT AUTO 1 % (0-1); LYMPHOCYTES ABSOLUTE AUTO 2.77 K/mm3 (0.84-5.20); LYMPHOCYTES PERCENT AUTO 15 % (21-46); MONOCYTES ABSOLUTE AUTO 0.94 K/mm3 (0.16-1.47); MONOCYTES PERCENT AUTO 5 % (4-13); Mean Corpuscular HGB 30.5 pg (26.0-34.0); Mean Corpuscular Volume 92 fL (80-100); Mean Platelet Volume 10.5 fL (9.1-12.4); NEUTROPHILS ABSOLUTE AUTO 14.55 K/mm3 (1.96-9.15); NEUTROPHILS PERCENT AUTO 78 % (41-73); Platelet Count 354 K/mm3 (150-400); RDW Coefficient Variation 15.9 % (11.7-14.2); Red Blood Cell Count 2.46 M/mm3 (3.80-5.20); White Blood Cell Count 18.69 K/mm3 (4.00-11.30)
[2020-04-09 05:07] LABS: Anion Gap 6 mmol/L (6-16); Blood Urea Nitrogen 21 mg/dL (8-24); Bun/Creatinine Ratio 21.7 (12.0-20.0); CO2, Blood 23 mmol/L (21-32); Calcium, Blood 7.8 mg/dL (8.5-10.1); Chloride, Blood 111 mmol/L (98-108); Creatinine, Blood 0.97 mg/dL (0.40-1.00); Glomerular Filtration Rate 58 (60-); Glucose, Blood 95 mg/dL (70-99); Potassium, Blood 4.1 mmol/L (3.5-5.5); Sodium, Blood 140 mmol/L (136-145); Vancomycin, Random 15.1 ug/mL
[2020-04-09 16:04] LABS: Hematocrit 28.4 % (33.0-51.0); Hemoglobin 9.3 g/dL (11.5-16.0); Mean Corpuscular HGB 30.4 pg (26.0-34.0); Mean Corpuscular HGB Conc 32.7 g/dL (31.5-36.5); Mean Corpuscular Volume 93 fL (80-100); Mean Platelet Volume 10.2 fL (9.1-12.4); Platelet Count 325 K/mm3 (150-400); RDW Coefficient Variation 15.4 % (11.7-14.2); Red Blood Cell Count 3.06 M/mm3 (3.80-5.20); White Blood Cell Count 19.76 K/mm3 (4.00-11.30)
[2020-04-10 05:44] LABS: BASOPHILS ABSOLUTE AUTO 0.07 K/mm3 (0.00-0.23); BASOPHILS PERCENT AUTO 0 % (0-2); EOSINOPHILS ABSOLUTE AUTO 0.24 K/mm3 (0.00-0.68); EOSINOPHILS PERCENT AUTO 1 % (0-6); Hematocrit 29.7 % (33.0-51.0); IMMATURE GRAN ABSOLUTE AUTO 0.36 K/mm3 (0.00-0.10); IMMATURE GRAN PERCENT AUTO 2 % (0-1); LYMPHOCYTES ABSOLUTE AUTO 3.76 K/mm3 (0.84-5.20); LYMPHOCYTES PERCENT AUTO 18 % (21-46); MONOCYTES ABSOLUTE AUTO 1.19 K/mm3 (0.16-1.47); MONOCYTES PERCENT AUTO 6 % (4-13); Mean Corpuscular HGB Conc 33.7 g/dL (31.5-36.5); Mean Corpuscular Volume 92 fL (80-100); Mean Platelet Volume 10.3 fL (9.1-12.4); NEUTROPHILS ABSOLUTE AUTO 15.11 K/mm3 (1.96-9.15); NEUTROPHILS PERCENT AUTO 73 % (41-73); Platelet Count 378 K/mm3 (150-400); RDW Coefficient Variation 15.9 % (11.7-14.2); RDW Standard Deviation 53.2 fL (35.1-46.3); Red Blood Cell Count 3.23 M/mm3 (3.80-5.20); White Blood Cell Count 20.73 K/mm3 (4.00-11.30)
[2020-04-10 05:59] LABS: Anion Gap 5 mmol/L (6-16); Blood Urea Nitrogen 16 mg/dL (8-24); Bun/Creatinine Ratio 19.6 (12.0-20.0); CO2, Blood 23 mmol/L (21-32); Calcium, Blood 7.9 mg/dL (8.5-10.1); Chloride, Blood 109 mmol/L (98-108); Creatinine, Blood 0.82 mg/dL (0.40-1.00); Glomerular Filtration Rate >60 (60-); Glucose, Blood 100 mg/dL (70-99); Sodium, Blood 137 mmol/L (136-145)
[2020-04-11 05:32] LABS: BASOPHILS ABSOLUTE AUTO 0.08 K/mm3 (0.00-0.23); BASOPHILS PERCENT AUTO 0 % (0-2); EOSINOPHILS ABSOLUTE AUTO 0.04 K/mm3 (0.00-0.68); EOSINOPHILS PERCENT AUTO 0 % (0-6); Hematocrit 27.4 % (33.0-51.0); Hemoglobin 9.4 g/dL (11.5-16.0); IMMATURE GRAN ABSOLUTE AUTO 0.45 K/mm3 (0.00-0.10); IMMATURE GRAN PERCENT AUTO 2 % (0-1); LYMPHOCYTES ABSOLUTE AUTO 3.92 K/mm3 (0.84-5.20); LYMPHOCYTES PERCENT AUTO 16 % (21-46); MONOCYTES ABSOLUTE AUTO 1.86 K/mm3 (0.16-1.47); MONOCYTES PERCENT AUTO 8 % (4-13); Mean Corpuscular HGB Conc 34.3 g/dL (31.5-36.5); Mean Corpuscular Volume 90 fL (80-100); Mean Platelet Volume 10.5 fL (9.1-12.4); NEUTROPHILS ABSOLUTE AUTO 17.78 K/mm3 (1.96-9.15); NEUTROPHILS PERCENT AUTO 74 % (41-73); Platelet Count 416 K/mm3 (150-400); RDW Coefficient Variation 15.8 % (11.7-14.2); Red Blood Cell Count 3.03 M/mm3 (3.80-5.20); White Blood Cell Count 24.13 K/mm3 (4.00-11.30)
[2020-04-11 06:20] LABS: Albumin, Blood 1.7 g/dL (3.4-5.0); Anion Gap 8 mmol/L (6-16); Blood Urea Nitrogen 15 mg/dL (8-24); Bun/Creatinine Ratio 19.8 (12.0-20.0); CO2, Blood 22 mmol/L (21-32); Calcium, Blood 7.9 mg/dL (8.5-10.1); Chloride, Blood 111 mmol/L (98-108); Creatinine, Blood 0.76 mg/dL (0.40-1.00); Glomerular Filtration Rate >60 (60-); Glucose, Blood 42 mg/dL (70-99); Phosphorus, Blood 1.3 mg/dL (2.5-4.9); Potassium, Blood 3.4 mmol/L (3.5-5.5); Sodium, Blood 141 mmol/L (136-145); Vancomycin, Trough 16.5 ug/mL (5.0-10.0)
[2020-04-12 05:35] LABS: BASOPHILS ABSOLUTE AUTO 0.06 K/mm3 (0.00-0.23); BASOPHILS PERCENT AUTO 0 % (0-2); EOSINOPHILS ABSOLUTE AUTO 0.25 K/mm3 (0.00-0.68); EOSINOPHILS PERCENT AUTO 1 % (0-6); Hematocrit 25.3 % (33.0-51.0); Hemoglobin 8.5 g/dL (11.5-16.0); IMMATURE GRAN ABSOLUTE AUTO 0.33 K/mm3 (0.00-0.10); IMMATURE GRAN PERCENT AUTO 2 % (0-1); LYMPHOCYTES ABSOLUTE AUTO 3.01 K/mm3 (0.84-5.20); LYMPHOCYTES PERCENT AUTO 16 % (21-46); MONOCYTES PERCENT AUTO 6 % (4-13); Mean Corpuscular HGB 30.6 pg (26.0-34.0); Mean Corpuscular HGB Conc 33.6 g/dL (31.5-36.5); Mean Corpuscular Volume 91 fL (80-100); NEUTROPHILS ABSOLUTE AUTO 13.57 K/mm3 (1.96-9.15); NEUTROPHILS PERCENT AUTO 74 % (41-73); RDW Standard Deviation 53.5 fL (35.1-46.3); Red Blood Cell Count 2.78 M/mm3 (3.80-5.20); White Blood Cell Count 18.32 K/mm3 (4.00-11.30)
[2020-04-12 05:45] LABS: Mean Platelet Volume 10.8 fL (9.1-12.4); Platelet Count 379 K/mm3 (150-400)
[2020-04-12 05:46] LABS: Albumin, Blood 1.6 g/dL (3.4-5.0); Anion Gap 7 mmol/L (6-16); Blood Urea Nitrogen 14 mg/dL (8-24); Bun/Creatinine Ratio 17.3 (12.0-20.0); CO2, Blood 21 mmol/L (21-32); Calcium, Blood 7.8 mg/dL (8.5-10.1); Chloride, Blood 111 mmol/L (98-108); Creatinine, Blood 0.81 mg/dL (0.40-1.00); Glomerular Filtration Rate >60 (60-); Glucose, Blood 131 mg/dL (70-99); Phosphorus, Blood 1.9 mg/dL (2.5-4.9); Potassium, Blood 4.4 mmol/L (3.5-5.5); Sodium, Blood 139 mmol/L (136-145)
[2020-04-13 05:23] LABS: BASOPHILS ABSOLUTE AUTO 0.06 K/mm3 (0.00-0.23); BASOPHILS PERCENT AUTO 0 % (0-2); EOSINOPHILS ABSOLUTE AUTO 0.25 K/mm3 (0.00-0.68); EOSINOPHILS PERCENT AUTO 1 % (0-6); Hematocrit 27.4 % (33.0-51.0); Hemoglobin 8.9 g/dL (11.5-16.0); IMMATURE GRAN ABSOLUTE AUTO 0.31 K/mm3 (0.00-0.10); IMMATURE GRAN PERCENT AUTO 2 % (0-1); LYMPHOCYTES ABSOLUTE AUTO 3.22 K/mm3 (0.84-5.20); LYMPHOCYTES PERCENT AUTO 18 % (21-46); MONOCYTES ABSOLUTE AUTO 0.85 K/mm3 (0.16-1.47); MONOCYTES PERCENT AUTO 5 % (4-13); Mean Corpuscular HGB 30.1 pg (26.0-34.0); Mean Corpuscular HGB Conc 32.5 g/dL (31.5-36.5); Mean Corpuscular Volume 93 fL (80-100); Mean Platelet Volume 10.3 fL (9.1-12.4); NEUTROPHILS ABSOLUTE AUTO 13.28 K/mm3 (1.96-9.15); NEUTROPHILS PERCENT AUTO 74 % (41-73); Platelet Count 439 K/mm3 (150-400); RDW Coefficient Variation 16.7 % (11.7-14.2); RDW Standard Deviation 56.4 fL (35.1-46.3); Red Blood Cell Count 2.96 M/mm3 (3.80-5.20); White Blood Cell Count 17.97 K/mm3 (4.00-11.30)
[2020-04-13 05:51] LABS: Bun/Creatinine Ratio 14.3 (12.0-20.0); Calcium, Blood 7.7 mg/dL (8.5-10.1); Creatinine, Blood 1.05 mg/dL (0.40-1.00); Phosphorus, Blood 2.4 mg/dL (2.5-4.9); Potassium, Blood 4.1 mmol/L (3.5-5.5); Prealbumin, Blood 6.3 mg/dL (20.0-40.0)
[2020-04-13] MEDS ORDERED: Silvadene20 GM TOP (11:17)
[2020-04-13] MEDS ORDERED: LACTOBACILLUS1 EAC4 PO (11:18)
[2020-04-13] MEDS ORDERED: Cleocin HCl150 MG PO (11:20)
[2020-04-13] MEDS ORDERED: PHOS-NaK PO (11:26)
== END 2020-04-13 12:45 | disposition home health service (06) | DRG 698 ==
LOC: ER 10:00 → PCU 14:19 → MEDS 14:19 → ERHOLD 14:19 → PCU 15:56 → MEDS 04-09 18:10
PROVIDERS: Emergency Medicine; Family Medicine; Internal Medicine; Nurse Practitioner Acute Care; ADMIT Internal Medicine
PROC: 0HB9XZZ Excision of Perineum Skin, External Approach (ICD-10-PCS; principal; 2020-04-07)
DX: T83.511A Infection and inflammatory reaction due to indwelling urethral catheter, initial encounter (principal); A41.9 Sepsis, unspecified organism; R65.20 Severe sepsis without septic shock; N17.9 Acute kidney failure, unspecified; I12.9 Hypertensive chronic kidney disease with stage 1 through stage 4 chronic kidney disease, or unspecified chronic kidney disease; N18.2 Chronic kidney disease, stage 2 (mild); D63.1 Anemia in chronic kidney disease; I48.0 Paroxysmal atrial fibrillation; F03.90 Unspecified dementia, unspecified severity, without behavioral disturbance, psychotic disturbance, mood disturbance, and anxiety; N39.0 Urinary tract infection, site not specified; R33.9 Retention of urine, unspecified; E11.22 Type 2 diabetes mellitus with diabetic chronic kidney disease; Z95.0 Presence of cardiac pacemaker; F32.9 Major depressive disorder, single episode, unspecified; L89.159 Pressure ulcer of sacral region, unspecified stage; K59.00 Constipation, unspecified; I95.9 Hypotension, unspecified; T14.8XXA Other injury of unspecified body region, initial encounter; N18.3 Chronic kidney disease, stage 3 (moderate)
CPT/HCPCS: 36415; 51702; 74177; 80048; 80053; 80069; 80202; 81001; 82550; 82553; 82803; 82947; 83605; 83735; 84100; 84134; 85014; 85018; 85025; 85027; 85610; 86850; 86900; 86901; 86923; 87040; 87070; 87075; 87086; 87205; 96360-59; 96361-59; 97110; 97162; 97166; 97530; 99285-25; A9270; A9270-GY; J0696; J0744; J1650; J1956; J3370; J7030; J7120; P9016; Q9967

== ENCOUNTER 2020-04-23 12:22 | Emergency (ER) | payer OTHER ==
[~2020-04-23] VITALS: Ht 162.6 cm; Wt 59.0 kg
[~2020-04-23 12:22] MED LIST changes: +CIPR500 PO; +Cleocin HCl150 MG PO; +LACTOBACILLUS1 EAC4 PO; -NORTRIPTYLINE H10 MG PO; +TAMS.4ER PO; -Vitamin B-121000 MCG PO
[2020-04-23 13:24] LABS: BASOPHILS ABSOLUTE AUTO 0.08 K/mm3 (0.00-0.23); BASOPHILS PERCENT AUTO 1 % (0-2); EOSINOPHILS ABSOLUTE AUTO 0.26 K/mm3 (0.00-0.68); EOSINOPHILS PERCENT AUTO 2 % (0-6); Hematocrit 33.7 % (33.0-51.0); Hemoglobin 10.7 g/dL (11.5-16.0); IMMATURE GRAN ABSOLUTE AUTO 0.07 K/mm3 (0.00-0.10); IMMATURE GRAN PERCENT AUTO 0 % (0-1); LYMPHOCYTES ABSOLUTE AUTO 4.42 K/mm3 (0.84-5.20); LYMPHOCYTES PERCENT AUTO 26 % (21-46); MONOCYTES ABSOLUTE AUTO 0.95 K/mm3 (0.16-1.47); MONOCYTES PERCENT AUTO 6 % (4-13); Mean Corpuscular HGB 30.2 pg (26.0-34.0); Mean Corpuscular HGB Conc 31.8 g/dL (31.5-36.5); Mean Corpuscular Volume 95 fL (80-100); Mean Platelet Volume 10.4 fL (9.1-12.4); NEUTROPHILS ABSOLUTE AUTO 11.54 K/mm3 (1.96-9.15); NEUTROPHILS PERCENT AUTO 67 % (41-73); Platelet Count 331 K/mm3 (150-400); RDW Coefficient Variation 15.9 % (11.7-14.2); RDW Standard Deviation 55.9 fL (35.1-46.3); Red Blood Cell Count 3.54 M/mm3 (3.80-5.20); White Blood Cell Count 17.32 K/mm3 (4.00-11.30)
[2020-04-23 13:25] LABS: Albumin, Blood 2.2 g/dL (3.4-5.0); Albumin/Globulin Ratio 0.4 (0.8-1.8); Bilirubin, Total 0.3 mg/dL (0.1-1.0); Bun/Creatinine Ratio 15.1 (12.0-20.0); Calcium, Blood 8.7 mg/dL (8.5-10.1); Creatinine, Blood 0.99 mg/dL (0.40-1.00); Globulin, Blood 5.1 g/dL (2.2-4.0); Potassium, Blood 4.1 mmol/L (3.5-5.5); Total Protein, Blood 7.3 g/dL (6.4-8.2)
[2020-04-23] MEDS ORDERED: TRAM50 PO (14:03)
[2020-04-23] MEDS ORDERED: METO25ER PO (14:05)
[2020-04-23] MEDS ORDERED: CITA20 PO (14:05)
[2020-04-23] MEDS ORDERED: PHOS NAK PO (14:06)
[2020-04-23] MEDS ORDERED: Silvadene20 GM TOP (14:07)
[2020-04-23] MEDS ORDERED: TAMS.4ER PO (14:09)
[2020-04-23] MEDS ORDERED: Aspir 8181 MG PO (14:10)
[2020-04-23] MEDS ORDERED: Colace100 MG PO (14:10)
[2020-04-23] MEDS ORDERED: AMLO5 PO (14:12)
[2020-04-23] MEDS ORDERED: Prinivil10 MG PO (14:12)
[2020-04-23] MEDS ORDERED: Metformin HCl750 MG PO (14:12)
[2020-04-23 14:15] LABS: Source, Urine Catheter
[2020-04-23 14:18] LABS: Bilirubin, Urine Neg (Neg); Blood, Urine 4+ (Neg); Glucose Qualitative, Urine 1+ (Neg); Ketones, Urine Neg (Neg); Leukocyte Esterase, Urine 3+ (Neg); Nitrite, Urine Neg (Neg); Protein, Urine 2+ (Neg); Urobilinogen, Urine NORM (Normal)
[2020-04-23 14:24] LABS: Appearance, Urine Cloudy (Clear); Color, Urine Yellow (P-Yellow)
[2020-04-23 14:26] LABS: Bacteria Many /hpf; Squamous Epithelial Cells Few /hpf (Few); Transitional Epithelial Cells Few /hpf (0-Rare); White Blood Cells, Urine TNTC /hpf (0-5); Yeast/Fungi Urine Many /hpf
[2020-04-23] MEDS ORDERED: NORTRIPTYLINE H10 MG PO (15:18)
[2020-04-23] MEDS ORDERED: Vitamin B-121000 MCG PO (15:20)
[2020-04-23] MEDS ORDERED: Garlic500 MG PO (15:22)
[2020-04-23] MEDS ORDERED: BASAGLAR K100 UNIT/1 SC (15:22)
[2020-04-23] MEDS ORDERED: VITAMIN D31000 UNI1 PO (15:22)
[2020-04-23] MEDS ORDERED: MEMA5TAB PO (15:22)
[2020-04-23] MEDS ORDERED: NOVOLOG100 UNIT/2 SC (15:22)
[2020-04-23] MEDS ORDERED: ACET500 PO (15:23)
== END 2020-04-23 17:03 ==
LOC: ER 12:22
PROVIDERS: Emergency Medicine
DX: R41.82 Altered mental status, unspecified (principal); N39.0 Urinary tract infection, site not specified; L89.159 Pressure ulcer of sacral region, unspecified stage; E11.9 Type 2 diabetes mellitus without complications; Z79.899 Other long term (current) drug therapy; Z20.828 Contact with and (suspected) exposure to other viral communicable diseases; Z79.82 Long term (current) use of aspirin; Z79.84 Long term (current) use of oral hypoglycemic drugs; Z88.0 Allergy status to penicillin; Z88.7 Allergy status to serum and vaccine; Z88.5 Allergy status to narcotic agent; Z88.2 Allergy status to sulfonamides; Z88.1 Allergy status to other antibiotic agents; Z88.8 Allergy status to other drugs, medicaments and biological substances
CPT/HCPCS: 36415; 70450; 71045; 80053; 81001; 84484; 85025; 87086; 93005; 93010; 96361; 96365; 99285-25; J1956; J7030; P9612; U0002

== ENCOUNTER → 2020-06-18 | Outpatient (CLI) | payer OTHER ==
[~2020-06-18] MED LIST changes: +ACET500 PO; +Aspir 8181 MG PO; +BASAGLAR K100 UNIT/1 SC; +Colace100 MG PO; +Garlic500 MG PO; +Metformin HCl750 MG PO; +NORTRIPTYLINE H10 MG PO; +NOVOLOG100 UNIT/2 SC; +PHOS NAK PO; +Prinivil10 MG PO; +Silvadene20 GM TOP; +TRAM50 PO; +Vitamin B-121000 MCG PO
[2020-06-18 22:58] LABS: BASOPHILS ABSOLUTE AUTO 0.06 K/mm3 (0.00-0.23); BASOPHILS PERCENT AUTO 1 % (0-2); EOSINOPHILS ABSOLUTE AUTO 0.45 K/mm3 (0.00-0.68); EOSINOPHILS PERCENT AUTO 4 % (0-6); Hematocrit 30.4 % (33.0-51.0); Hemoglobin 9.6 g/dL (11.5-16.0); IMMATURE GRAN ABSOLUTE AUTO 0.03 K/mm3 (0.00-0.10); IMMATURE GRAN PERCENT AUTO 0 % (0-1); LYMPHOCYTES ABSOLUTE AUTO 4.09 K/mm3 (0.84-5.20); LYMPHOCYTES PERCENT AUTO 33 % (21-46); MONOCYTES ABSOLUTE AUTO 0.83 K/mm3 (0.16-1.47); MONOCYTES PERCENT AUTO 7 % (4-13); Mean Corpuscular HGB 30.1 pg (26.0-34.0); Mean Corpuscular HGB Conc 31.6 g/dL (31.5-36.5); Mean Corpuscular Volume 95 fL (80-100); Mean Platelet Volume 11.4 fL (9.1-12.4); NEUTROPHILS ABSOLUTE AUTO 6.86 K/mm3 (1.96-9.15); NEUTROPHILS PERCENT AUTO 56 % (41-73); Platelet Count 286 K/mm3 (150-400); RDW Coefficient Variation 14.3 % (11.7-14.2); RDW Standard Deviation 50.1 fL (35.1-46.3); Red Blood Cell Count 3.19 M/mm3 (3.80-5.20); White Blood Cell Count 12.32 K/mm3 (4.00-11.30)
[2020-06-18 23:14] LABS: Calcium, Blood 8.9 mg/dL (8.5-10.1); Creatinine, Blood 1.15 mg/dL (0.40-1.00); Potassium, Blood 4.2 mmol/L (3.5-5.5)
== END ==
LOC: LAB UVN 22:48
PROVIDERS: Family Medicine
DX: I10 Essential (primary) hypertension (principal); N17.8 Other acute kidney failure
CPT/HCPCS: 80048; 85025

== ENCOUNTER → 2020-06-19 | Outpatient (CLI) | payer OTHER ==
[2020-06-19 02:58] LABS: Source, Urine Catheter
[2020-06-19 03:02] LABS: Bilirubin, Urine Neg (Neg); Blood, Urine 2+ (Neg); Glucose Qualitative, Urine Neg (Neg); Ketones, Urine Neg (Neg); Leukocyte Esterase, Urine 3+ (Neg); Nitrite, Urine Pos (Neg); Protein, Urine 1+ (Neg); Specific Gravity, Urine 1.015 (1.003-1.022); Urobilinogen, Urine NORM (Normal)
[2020-06-19 03:03] LABS: Appearance, Urine Hazy (Clear); Color, Urine Yellow (P-Yellow)
[2020-06-19 03:16] LABS: Bacteria Many /hpf; Red Blood Cells, Urine 0-2 /hpf (0-2); Squamous Epithelial Cells Not Seen /hpf (Few); White Blood Cells, Urine TNTC /hpf (0-5)
== END | disposition home or self-care (01) ==
LOC: LAB UVN 02:56 → EDSTATUS 09:54
PROVIDERS: Family Medicine
DX: N39.0 Urinary tract infection, site not specified (principal)
CPT/HCPCS: 81001; 87086

== ENCOUNTER → 2020-06-26 | Outpatient (CLI) | payer OTHER ==
[2020-06-26 21:43] LABS: Source, Urine Catheter
[2020-06-26 21:50] LABS: Appearance, Urine Hazy (Clear); Bilirubin, Urine Neg (Neg); Blood, Urine 3+ (Neg); Color, Urine Yellow (P-Yellow); Glucose Qualitative, Urine Neg (Neg); Ketones, Urine Neg (Neg); Leukocyte Esterase, Urine 3+ (Neg); Nitrite, Urine Neg (Neg); Protein, Urine 2+ (Neg); Urobilinogen, Urine NORM (Normal)
[2020-06-26 21:56] LABS: Bacteria Many /hpf; Red Blood Cells, Urine 0-2 /hpf (0-2); Squamous Epithelial Cells Not Seen /hpf (Few); White Blood Cells, Urine 50-100 /hpf (0-5); Yeast/Fungi Urine Few /hpf
== END | disposition home or self-care (01) ==
LOC: LAB UVN 21:30
PROVIDERS: Family Medicine
DX: N39.0 Urinary tract infection, site not specified (principal)
CPT/HCPCS: 81001; 87077; 87086; 87186

== ENCOUNTER → 2020-07-02 | Outpatient (CLI) | payer OTHER ==
[2020-07-02 18:16] LABS: Vancomycin, Trough 17.2 ug/mL (5.0-10.0)
== END | disposition home or self-care (01) ==
LOC: EDSTATUS 09:56 → LAB UVN 15:36
PROVIDERS: Family Medicine
DX: Z51.81 Encounter for therapeutic drug level monitoring (principal); Z79.899 Other long term (current) drug therapy
CPT/HCPCS: 80202

== ENCOUNTER → 2020-07-15 | Outpatient (CLI) | payer OTHER ==
[2020-07-15 17:31] LABS: Appearance, Urine Hazy (Clear); Bilirubin, Urine Neg (Neg); Blood, Urine 4+ (Neg); Color, Urine Yellow (P-Yellow); Glucose Qualitative, Urine Neg (Neg); Ketones, Urine Neg (Neg); Leukocyte Esterase, Urine 3+ (Neg); Nitrite, Urine Neg (Neg); Protein, Urine 2+ (Neg); Urobilinogen, Urine NORM (Normal)
[2020-07-15 17:43] LABS: Bacteria Few /hpf; Squamous Epithelial Cells Rare /hpf (Few); White Blood Cells, Urine 50-100 /hpf (0-5); Yeast/Fungi Urine Few /hpf
== END | disposition home or self-care (01) ==
LOC: EDSTATUS 15:03 → LAB UVN 17:00
PROVIDERS: Family Medicine
DX: N39.0 Urinary tract infection, site not specified (principal)
CPT/HCPCS: 81001; 87086; 87106

== ENCOUNTER → 2020-08-04 | Outpatient (CLI) | payer OTHER | END | disposition home or self-care (01) | LOC: LAB SHORT 13:43 → LAB UVN 13:43 | DX: L89.154 Pressure ulcer of sacral region, stage 4 (principal) | CPT/HCPCS: 87070; 87075; 87077; 87147; 87186; 87205 ==

== ENCOUNTER 2020-08-30 00:19 | Day surgery (SDC) | payer OTHER | END 2020-08-30 22:47 | disposition home or self-care (01) | LOC: WOUND 00:19 | DX: L89.153 Pressure ulcer of sacral region, stage 3 (principal); L89.203 Pressure ulcer of unspecified hip, stage 3; Z88.0 Allergy status to penicillin; Z88.1 Allergy status to other antibiotic agents; Z88.2 Allergy status to sulfonamides; Z88.5 Allergy status to narcotic agent; Z88.7 Allergy status to serum and vaccine; Z79.4 Long term (current) use of insulin; Z79.899 Other long term (current) drug therapy; Z79.82 Long term (current) use of aspirin; Z20.822 Contact with and (suspected) exposure to COVID-19 | CPT/HCPCS: A9270; G0463 ==

== ENCOUNTER 2020-09-07 00:20 | Day surgery (SDC) | payer OTHER | END 2020-09-07 22:53 | disposition home or self-care (01) | LOC: WOUND 00:20 | DX: L89.153 Pressure ulcer of sacral region, stage 3 (principal); L89.203 Pressure ulcer of unspecified hip, stage 3; I12.9 Hypertensive chronic kidney disease with stage 1 through stage 4 chronic kidney disease, or unspecified chronic kidney disease; E11.22 Type 2 diabetes mellitus with diabetic chronic kidney disease; N18.9 Chronic kidney disease, unspecified; D63.1 Anemia in chronic kidney disease; I48.0 Paroxysmal atrial fibrillation; M19.90 Unspecified osteoarthritis, unspecified site; F33.9 Major depressive disorder, recurrent, unspecified; N13.8 Other obstructive and reflux uropathy; F03.90 Unspecified dementia, unspecified severity, without behavioral disturbance, psychotic disturbance, mood disturbance, and anxiety; Z79.01 Long term (current) use of anticoagulants; Z79.4 Long term (current) use of insulin; Z74.09 Other reduced mobility; Z95.0 Presence of cardiac pacemaker | CPT/HCPCS: A9270; G0463 ==

== ENCOUNTER 2020-09-21 00:37 | Day surgery (SDC) | payer OTHER | END 2020-09-21 22:55 | disposition home or self-care (01) | LOC: WOUND 00:37 | DX: L89.153 Pressure ulcer of sacral region, stage 3 (principal); E11.22 Type 2 diabetes mellitus with diabetic chronic kidney disease; I12.9 Hypertensive chronic kidney disease with stage 1 through stage 4 chronic kidney disease, or unspecified chronic kidney disease; N18.9 Chronic kidney disease, unspecified; I48.91 Unspecified atrial fibrillation; F03.90 Unspecified dementia, unspecified severity, without behavioral disturbance, psychotic disturbance, mood disturbance, and anxiety; F33.9 Major depressive disorder, recurrent, unspecified; Z95.0 Presence of cardiac pacemaker | CPT/HCPCS: A9270; G0463 ==

== ENCOUNTER → 2020-11-03 | Outpatient (CLI) | payer OTHER ==
[2020-11-03 06:19] LABS: Bun/Creatinine Ratio 28.6 (12.0-20.0); Calcium, Blood 8.9 mg/dL (8.5-10.1); Creatinine, Blood 1.05 mg/dL (0.40-1.00); Potassium, Blood 4.3 mmol/L (3.5-5.5)
== END | disposition home or self-care (01) ==
LOC: LAB UVN 05:50 → EDSTATUS 13:15
PROVIDERS: Family Medicine
DX: E11.22 Type 2 diabetes mellitus with diabetic chronic kidney disease (principal); N18.2 Chronic kidney disease, stage 2 (mild)
CPT/HCPCS: 80048; 83036

== ENCOUNTER → 2021-01-26 | Outpatient (CLI) | payer OTHER ==
[2021-01-26 22:28] LABS: BASOPHILS ABSOLUTE AUTO 0.07 K/mm3 (0.00-0.23); BASOPHILS PERCENT AUTO 1 % (0-2); EOSINOPHILS ABSOLUTE AUTO 0.53 K/mm3 (0.00-0.68); EOSINOPHILS PERCENT AUTO 4 % (0-6); Hematocrit 37.6 % (33.0-51.0); Hemoglobin 12.4 g/dL (11.5-16.0); IMMATURE GRAN ABSOLUTE AUTO 0.05 K/mm3 (0.00-0.10); IMMATURE GRAN PERCENT AUTO 0 % (0-1); LYMPHOCYTES ABSOLUTE AUTO 3.53 K/mm3 (0.84-5.20); LYMPHOCYTES PERCENT AUTO 27 % (21-46); MONOCYTES ABSOLUTE AUTO 0.78 K/mm3 (0.16-1.47); MONOCYTES PERCENT AUTO 6 % (4-13); Mean Corpuscular HGB 30.8 pg (26.0-34.0); Mean Corpuscular Volume 94 fL (80-100); Mean Platelet Volume 11.9 fL (9.1-12.4); NEUTROPHILS ABSOLUTE AUTO 8.36 K/mm3 (1.96-9.15); NEUTROPHILS PERCENT AUTO 63 % (41-73); Platelet Count 322 K/mm3 (150-400); RDW Coefficient Variation 13.4 % (11.7-14.2); RDW Standard Deviation 46.4 fL (35.1-46.3); Red Blood Cell Count 4.02 M/mm3 (3.80-5.20); White Blood Cell Count 13.32 K/mm3 (4.00-11.30)
[2021-01-26 22:46] LABS: Albumin/Globulin Ratio 0.6 (0.8-1.8); Bilirubin, Total 0.2 mg/dL (0.1-1.0); Bun/Creatinine Ratio 26.5 (12.0-20.0); Creatinine, Blood 1.32 mg/dL (0.40-1.00); Globulin, Blood 4.7 g/dL (2.2-4.0); Potassium, Blood 4.5 mmol/L (3.5-5.5); Total Protein, Blood 7.7 g/dL (6.4-8.2)
== END ==
LOC: EDSTATUS 10:20 → LAB UVN 22:20
PROVIDERS: Internal Medicine
DX: I12.9 Hypertensive chronic kidney disease with stage 1 through stage 4 chronic kidney disease, or unspecified chronic kidney disease (principal); N18.2 Chronic kidney disease, stage 2 (mild); R26.2 Difficulty in walking, not elsewhere classified
CPT/HCPCS: 80053; 83036; 85025

== ENCOUNTER → 2021-01-31 | Outpatient (CLI) | payer OTHER ==
[2021-02-01 00:38] LABS: Hematocrit 35.7 % (33.0-51.0); Hemoglobin 11.7 g/dL (11.5-16.0); Mean Corpuscular HGB 31.5 pg (26.0-34.0); Mean Corpuscular HGB Conc 32.8 g/dL (31.5-36.5); Mean Corpuscular Volume 96 fL (80-100); Platelet Count 229 K/mm3 (150-400); RDW Coefficient Variation 13.3 % (11.7-14.2); RDW Standard Deviation 47.3 fL (35.1-46.3); Red Blood Cell Count 3.72 M/mm3 (3.80-5.20); White Blood Cell Count 10.75 K/mm3 (4.00-11.30)
== END ==
LOC: EDSTATUS 10:22 → LAB UVN 20:40
PROVIDERS: Internal Medicine
DX: I10 Essential (primary) hypertension (principal)
CPT/HCPCS: 85027

== ENCOUNTER → 2021-05-03 | Outpatient (CLI) | payer OTHER ==
[~2021-05-03] MED LIST changes: +ATROPINE SULFATE2 M5 SL; +Ativan1 MG PO; +Citalopram10 MG/5 ML PO; +DULCOLAX400 MG/5 M PO; +MORP20L SL; +Magic Bullet10 MG PR
[2021-05-03 23:08] LABS: Source, Urine Clean Catch
[2021-05-03 23:12] LABS: BASOPHILS ABSOLUTE AUTO 0.03 K/mm3 (0.00-0.23); BASOPHILS PERCENT AUTO 0 % (0-2); EOSINOPHILS ABSOLUTE AUTO 0.03 K/mm3 (0.00-0.68); EOSINOPHILS PERCENT AUTO 0 % (0-6); Hematocrit 34.9 % (33.0-51.0); Hemoglobin 11.6 g/dL (11.5-16.0); IMMATURE GRAN ABSOLUTE AUTO 0.04 K/mm3 (0.00-0.10); IMMATURE GRAN PERCENT AUTO 0 % (0-1); LYMPHOCYTES ABSOLUTE AUTO 2.52 K/mm3 (0.84-5.20); LYMPHOCYTES PERCENT AUTO 23 % (21-46); MONOCYTES ABSOLUTE AUTO 0.53 K/mm3 (0.16-1.47); MONOCYTES PERCENT AUTO 5 % (4-13); Mean Corpuscular HGB 30.8 pg (26.0-34.0); Mean Corpuscular HGB Conc 33.2 g/dL (31.5-36.5); Mean Corpuscular Volume 93 fL (80-100); Mean Platelet Volume 12.1 fL (9.1-12.4); NEUTROPHILS ABSOLUTE AUTO 8.06 K/mm3 (1.96-9.15); NEUTROPHILS PERCENT AUTO 72 % (41-73); Platelet Count 300 K/mm3 (150-400); RDW Standard Deviation 47.5 fL (35.1-46.3); Red Blood Cell Count 3.77 M/mm3 (3.80-5.20); White Blood Cell Count 11.21 K/mm3 (4.00-11.30)
[2021-05-03 23:22] LABS: Bilirubin, Urine Neg (Neg); Blood, Urine 4+ (Neg); Glucose Qualitative, Urine Neg (Neg); Ketones, Urine 1+ (Neg); Leukocyte Esterase, Urine 3+ (Neg); Nitrite, Urine Neg (Neg); Protein, Urine 3+ (Neg); Urobilinogen, Urine 1+ (Normal); pH, Urine 6.5 (5.0-8.0)
[2021-05-03 23:26] LABS: Appearance, Urine Cloudy (Clear); Color, Urine Yellow (P-Yellow)
[2021-05-03 23:29] LABS: Bun/Creatinine Ratio 27.4 (12.0-20.0); Calcium, Blood 9.1 mg/dL (8.5-10.1); Creatinine, Blood 1.68 mg/dL (0.40-1.00); Potassium, Blood 4.1 mmol/L (3.5-5.5)
[2021-05-03 23:30] LABS: Amorphous Light (0-Heavy); Bacteria Many /hpf; Mucus Light (0-Heavy); Squamous Epithelial Cells Few /hpf (Few); White Blood Cells, Urine TNTC /hpf (0-5)
== END | disposition home or self-care (01) ==
LOC: EDSTATUS 10:38 → LAB UVN 23:06
PROVIDERS: Family Medicine
DX: E11.9 Type 2 diabetes mellitus without complications (principal); R26.89 Other abnormalities of gait and mobility
CPT/HCPCS: 80048; 81001; 85025; 87077; 87086; 87186

== ENCOUNTER 2021-05-05 09:28 | Inpatient (IN) | payer OTHER ==
[~2021-05-05] VITALS: Ht 167.6 cm; Wt 66.0 kg
[~2021-05-05 09:28] MED LIST changes: -ATROPINE SULFATE2 M5 SL; -Ativan1 MG PO; -Citalopram10 MG/5 ML PO; -DULCOLAX400 MG/5 M PO; -MORP20L SL; -Magic Bullet10 MG PR; -NORTRIPTYLINE H10 MG PO; -TRAM50 PO
[2021-05-05 10:01] LABS: BASOPHILS ABSOLUTE AUTO 0.02 K/mm3 (0.00-0.23); BASOPHILS PERCENT AUTO 0 % (0-2); EOSINOPHILS PERCENT AUTO 0 % (0-6); Hematocrit 37.5 % (33.0-51.0); Hemoglobin 12.2 g/dL (11.5-16.0); IMMATURE GRAN ABSOLUTE AUTO 0.09 K/mm3 (0.00-0.10); IMMATURE GRAN PERCENT AUTO 1 % (0-1); LYMPHOCYTES ABSOLUTE AUTO 1.42 K/mm3 (0.84-5.20); LYMPHOCYTES PERCENT AUTO 10 % (21-46); MONOCYTES ABSOLUTE AUTO 0.85 K/mm3 (0.16-1.47); MONOCYTES PERCENT AUTO 6 % (4-13); Mean Corpuscular HGB 30.6 pg (26.0-34.0); Mean Corpuscular HGB Conc 32.5 g/dL (31.5-36.5); Mean Corpuscular Volume 94 fL (80-100); Mean Platelet Volume 12.2 fL (9.1-12.4); NEUTROPHILS ABSOLUTE AUTO 11.41 K/mm3 (1.96-9.15); NEUTROPHILS PERCENT AUTO 83 % (41-73); Platelet Count 214 K/mm3 (150-400); RDW Coefficient Variation 13.9 % (11.7-14.2); RDW Standard Deviation 47.7 fL (35.1-46.3); Red Blood Cell Count 3.99 M/mm3 (3.80-5.20); White Blood Cell Count 13.79 K/mm3 (4.00-11.30)
[2021-05-05 10:28] LABS: Albumin, Blood 3.2 g/dL (3.4-5.0); Albumin/Globulin Ratio 0.7 (0.8-1.8); Bilirubin, Total 1.1 mg/dL (0.1-1.0); Bun/Creatinine Ratio 28.8 (12.0-20.0); Calcium, Blood 9.1 mg/dL (8.5-10.1); Creatinine, Blood 2.33 mg/dL (0.40-1.00); Globulin, Blood 4.4 g/dL (2.2-4.0); Potassium, Blood 4.8 mmol/L (3.5-5.5); Total Protein, Blood 7.6 g/dL (6.4-8.2)
[2021-05-05 11:40] LABS: Source, Urine Catheter
[2021-05-05 11:43] LABS: Appearance, Urine Clear (Clear); Bilirubin, Urine Neg (Neg); Blood, Urine 3+ (Neg); Color, Urine Yellow (P-Yellow); Glucose Qualitative, Urine Neg (Neg); Ketones, Urine Neg (Neg); Leukocyte Esterase, Urine 2+ (Neg); Nitrite, Urine Neg (Neg); Protein, Urine 2+ (Neg); Urobilinogen, Urine 2+ (Normal)
[2021-05-05 11:51] LABS: Bacteria Mod /hpf; Squamous Epithelial Cells Few /hpf (Few)
[2021-05-05 11:52] LABS: Transitional Epithelial Cells Rare /hpf (0-Rare)
[2021-05-05] MEDS ORDERED: TRAM50 PO (12:49)
[2021-05-05] MEDS ORDERED: NORTRIPTYLINE H10 MG PO (12:50)
[2021-05-05 12:51] LABS: SARS-Cov-2 (COVID-19) PCR, MMC NEGATIVE (NEGATIVE)
[2021-05-05] MEDS ORDERED: METO25ER PO (12:51)
[2021-05-05] MEDS ORDERED: Citalopram10 MG/5 ML PO (12:51)
[2021-05-05] MEDS ORDERED: Magic Bullet10 MG PR (13:10)
[2021-05-05] MEDS ORDERED: SENN187 PO (13:10)
[2021-05-05] MEDS ORDERED: DULCOLAX400 MG/5 M PO (13:11)
--- NOTE | 2021-05-05 18:50 | NUR ---
Admitted to floor room 351 with generalized weakness and confusion. Alert and oriented x1, unable to give much history. C/o bilateral lower extremities numberness from knee down. Denies any headache, nausea and SOB. One person assist with ADLS. On tele with sinus rhythm at 74. Consulted Pharmacy about heparin , lab pending and continue to monitor. vital signs are stable. critical lactic 4.8 noted and incoming nurse notified. continue to monitor.
[2021-05-05 19:15] LABS: Anti-Xa UFH, PHA Monitoring <0.10 IU/mL
[2021-05-06 02:06] LABS: BASOPHILS ABSOLUTE AUTO 0.03 K/mm3 (0.00-0.23); BASOPHILS PERCENT AUTO 0 % (0-2); EOSINOPHILS ABSOLUTE AUTO 0.01 K/mm3 (0.00-0.68); EOSINOPHILS PERCENT AUTO 0 % (0-6); Hematocrit 35.1 % (33.0-51.0); Hemoglobin 11.4 g/dL (11.5-16.0); IMMATURE GRAN ABSOLUTE AUTO 0.11 K/mm3 (0.00-0.10); IMMATURE GRAN PERCENT AUTO 1 % (0-1); LYMPHOCYTES ABSOLUTE AUTO 2.36 K/mm3 (0.84-5.20); LYMPHOCYTES PERCENT AUTO 14 % (21-46); MONOCYTES PERCENT AUTO 7 % (4-13); Mean Corpuscular HGB 30.6 pg (26.0-34.0); Mean Corpuscular HGB Conc 32.5 g/dL (31.5-36.5); Mean Corpuscular Volume 94 fL (80-100); Mean Platelet Volume 12.2 fL (9.1-12.4); NEUTROPHILS ABSOLUTE AUTO 12.75 K/mm3 (1.96-9.15); NEUTROPHILS PERCENT AUTO 77 % (41-73); NRBC ABSOLUTE 0.04 K/mm3 (0.00-0.02); NRBC Auto 0.2 /100 WBC (0.0-0.2); Platelet Count 151 K/mm3 (150-400); RDW Coefficient Variation 14.1 % (11.7-14.2); RDW Standard Deviation 47.9 fL (35.1-46.3); Red Blood Cell Count 3.72 M/mm3 (3.80-5.20); White Blood Cell Count 16.46 K/mm3 (4.00-11.30)
[2021-05-06 02:48] LABS: Albumin, Blood 2.7 g/dL (3.4-5.0); Albumin/Globulin Ratio 0.6 (0.8-1.8); Bilirubin, Total 0.6 mg/dL (0.1-1.0); Calcium, Blood 8.6 mg/dL (8.5-10.1); Creatinine, Blood 2.79 mg/dL (0.40-1.00); Globulin, Blood 4.4 g/dL (2.2-4.0); Total Protein, Blood 7.1 g/dL (6.4-8.2)
--- NOTE | 2021-05-06 04:14 | NUR ---
SHIFT SUMMARY DNR PT ADMITTED FOR NSTEMI AND NEW ONSET OF CHF. PT HAS DEMENTIA AND IS CONFUSED. REFUSED PO INTAKE. DOESNT WANT TO BE TOUCHED. TROPONIN HAS BEEN ELEVATED THROUGHOUT SHIFT. INSTRUMENT MAN MD IS AWARE. PT ON HEPARIN DRIP. ORTEGA DRAINING TO GRAVITY, PATENT. BED IN LOWEST POSITION, ALARM ON. CALL LIGHT WITHIN REACH, PT DOES NOT USE. ALL VS STABLE, DOESNT C/O PAIN OR APPEARS TO BE IN PAIN.
--- NOTE | 2021-05-06 08:24 | NUR ---
HYPOTENSION DR. DAVEY ORDERED 40MG OF IV LASIX TO BE GIVEN THIS AM, MORNING BP WAS 95/63. PER CLINICAL JUDGMENT, ONLY 20MG WAS ADMINISTERED. PT ALSO REFUSED ALL ORAL MEDS. DR. DAVEY NOTIFIED & ORDERED TO RECHECK BP AT 0900 AND GIVE THE OTHER 20MG OF LASIX IF SBP IS OVER 105.
--- NOTE | 2021-05-06 15:09 | NUR ---
Requested by staff, (MD, nursing and CM) to contact pt's guardian, Joanna to discuss the possibility of looking into hospice care an an option for pt. Basia has a history of dementia and lives at in the senior care care section. She is currently being treated for a UTI and has had an NSTEMI with new onset CHF. Pt has been refusing care today. Spoke with Joanna who states she is aware of pt's POLST (DNR and limited interventions) and is open to the idea of discussing hospice as a non-aggressive approach for Basia. Joanna would like to contact pt's son, Andre, who lives out of state ph# [phone] to discuss with him. Joanna is aware that there is a cardiology consult that has been placed. Joanna will plan to talk with son and collect information to determine the best course of action for Basia. Joanna will plan to stay in contact with PC nurse to continue planning Basia's future care.
[2021-05-06 16:30] LABS: Bun/Creatinine Ratio 30.5 (12.0-20.0); Calcium, Blood 8.2 mg/dL (8.5-10.1); Creatinine, Blood 2.92 mg/dL (0.40-1.00); Potassium, Blood 4.9 mmol/L (3.5-5.5)
--- NOTE | 2021-05-06 16:57 | NUR ---
SHIFT SUMMARY/COMFORT CARE PT TRANSITIONED TO COMFORT CARE. IV LINES DCED. TELE REMOVED. FAMILY AT BEDSIDE AND ENCOURGED TO COME IN TOMORROW AND SEE THE PT. PT SON AND HIS CAREGIVER STATED THEY WILL DO SO. PT DENIES PAIN AT THIS TIME AND APPEARS COMFORTABLE. CALL LIGHT IN REACH. AND BED ALARM ON.
--- NOTE | 2021-05-07 04:59 | NUR ---
SHIFT SUMMARY PT IS COMFORT CARE. DROWSY THROUGHOUT SHIFT. AROUSABLE, A&O TO SELF. DENIES PAIN. PT APPEARS TO BE COMFORTABLE.
--- NOTE | 2021-05-07 12:39 | NUR ---
[facility] comfort care visit made - Pt sleeping soundly but grimacing and frowning in her sleep. RN discovered no pain medication was ordered for comfort care order set and contacted [facility]. Roxanol ordered per comfort care order set. Reviewed plan of care with RN at time of visit this am. Will cont to visit for support and s/s management.
--- NOTE | 2021-05-07 17:05 | NUR ---
PATIENT APPEARS TO BE RESTING QUIETLY.
--- NOTE | 2021-05-07 17:06 | NUR ---
THE PATIENT REPORTS YES WHEN ASK IF SHE WAS HAVING PAIN.
--- NOTE | 2021-05-07 17:09 | NUR ---
PATIENT DOES NOT APPEAR TO BE IN ACUTE DISTRESS. SHE STATES 'NO' WHEN ASKED IF SHE WAS HAVING PAIN OR UNCOMFORTABLE. SHE APPEARS TO BE RESTING QUIETLY.
--- NOTE | 2021-05-08 10:16 | NUR ---
PATIENT IS REPOSITION. SHE SHAKES HEAD 'NO' WHEN ASKED IF SHE WAS IN PAIN. SHE APPEARS TO BE RESTING COMFORTABLY.
--- NOTE | 2021-05-08 10:18 | NUR ---
PATIENT IS REPOSITIONED AND APPEARS TO BE RESTING COMFORTABLY.
--- NOTE | 2021-05-08 12:15 | NUR ---
Comfort care visit made and case conference with nursing. Comfort care orders updated per VO of Dr Falcon. Hospice order entered and CM/Personnel Psychologist had already been working on that last week. Pt cont to appear comfortable. Roxanol was used once yesterday with good results.
--- NOTE | 2021-05-09 08:45 | NUR ---
Comfort care visit. Pt sleeping and appears very comfortable. I did not wake or disturb her at present. Plans in place for transfer back to [facility]. VM left for CM re: status and plans already in place from last week.
[2021-05-09] MEDS ORDERED: MORP20L SL (09:37)
[2021-05-09] MEDS ORDERED: Ativan1 MG PO (09:38)
[2021-05-09] MEDS ORDERED: ONDA4ODT MM (09:38)
[2021-05-09] MEDS ORDERED: ATROPINE SULFATE2 M5 SL (09:38)
--- NOTE | 2021-05-09 11:39 | NUR ---
discharge summary PT DISCHARGED TO [facility]. REPORT CALLED AND GIVEN TO RAMIREZ AT 1137. IV'S DC'D AND BELONGINGS RETURNED. PT LEFT ROOM PRIOR TO THIS NOTE VIA [facility].
== END 2021-05-09 11:35 | disposition hospice, home (50) | DRG 91 ==
LOC: ER 09:28 → MEDS 14:29 → ENPENDDIS 05-09 10:50 → MEDS 05-09 11:35
PROVIDERS: Nurse Practitioner Acute Care; Physician Assistant; Student in an Organized Health Care Education/Training Program; ADMIT Internal Medicine
DX: G92 Toxic encephalopathy (principal); I21.4 Non-ST elevation (NSTEMI) myocardial infarction; N17.0 Acute kidney failure with tubular necrosis; I50.23 Acute on chronic systolic (congestive) heart failure; N39.0 Urinary tract infection, site not specified; I13.0 Hypertensive heart and chronic kidney disease with heart failure and stage 1 through stage 4 chronic kidney disease, or unspecified chronic kidney disease; N18.4 Chronic kidney disease, stage 4 (severe); Z51.5 Encounter for palliative care; Z66 Do not resuscitate; Z20.822 Contact with and (suspected) exposure to COVID-19; F03.90 Unspecified dementia, unspecified severity, without behavioral disturbance, psychotic disturbance, mood disturbance, and anxiety; I34.0 Nonrheumatic mitral (valve) insufficiency; R74.01 Elevation of levels of liver transaminase levels; I48.0 Paroxysmal atrial fibrillation; E11.22 Type 2 diabetes mellitus with diabetic chronic kidney disease; I25.10 Atherosclerotic heart disease of native coronary artery without angina pectoris; M19.90 Unspecified osteoarthritis, unspecified site; Z95.0 Presence of cardiac pacemaker; Z88.5 Allergy status to narcotic agent; Z88.8 Allergy status to other drugs, medicaments and biological substances; Z88.7 Allergy status to serum and vaccine; Z88.0 Allergy status to penicillin; Z88.2 Allergy status to sulfonamides; Z88.1 Allergy status to other antibiotic agents; Z90.710 Acquired absence of both cervix and uterus
CPT/HCPCS: 31502; 36415; 71045; 74176; 76705; 80048; 80053; 81001; 82140; 82550; 82947; 83605; 83690; 83735; 83880; 84484; 85025; 85520; 85730; 87040; 87077; 87086; 87186; 93005; 93010; 93306; 96365; 96366; 96375; 99285-25; A9270; G0480; J0696; J1644; J1940; J2405; J7120; U0004